=== PATIENT | female | born 1965 | race Caucasian/White ===

== ENCOUNTER 2023-06-24 07:18 | Emergency (ER) | payer OTHER ==
[2023-06-24 07:45] VITALS: PULSE 88; RESP 22; TEMP 96.9; O2SAT 97
[2023-06-24] MEDS ORDERED: Sodium Chloride 0.9% 1000 ML 1,000 ML ONE (07:52)
[2023-06-24] MEDS ORDERED: Zofran 4 MG/2 ML VIAL ONE (07:52)
[2023-06-24] MEDS: Sodium Chloride 0.9% 1000 ML 1,000 ML IV STA (07:54)
[2023-06-24] MEDS: Zofran 4 MG/2 ML VIAL IV ONE (07:55)
[2023-06-24 07:59] LABS: Absolute Neutrophil Ct (ANC) 6.87 x10^3/uL (1.4-6.9); BASOPHIL % 0.5 % (0.0-0.4); Basophil (Absolute #) 0.04 x10^3/uL (0-0.4); Eosinophil % 0.4 % (0.00-5.0); Eosinophil (Absolute #) 0.03 x10^3/uL (0-0.5); Hemoglobin 15.2 g/dL (12.0-16.0); IMMATURE GRAN # 0.04 x10^3u/L (0.00-0.03); IMMATURE GRAN % 0.5 % (0.00-0.4); Lymphocyte (Absolute #) 0.48 x10^3/uL (1.0-4.6); Lymphocytes % 5.9 % (24.0-44.0); Mean Cell Volume 93.8 fL (78-100); Mean Corpuscular Hemoglobin 31.7 pg (26-32); Mean Corpuscular Hgb Concent. 33.8 g/dL (32-36); Monocyte (Absolute #) 0.67 x10^3/uL (0.0-1.3); Monocytes % 8.2 % (0.0-12.0); Neutrophil % 84.5 % (36.0-66.0); Platelet Count 208 x10^3/uL (150-450); Red Cell Distribution Width 12.8 % (11.5-14.0); White Blood Count 8.1 x10^3/uL (4.0-10.5)
[2023-06-24 08:12] LABS: ALBUMIN 5.3 g/dL (3.5-5.0); ANION GAP 19.6 MEQ/L (5-15); BILIRUBIN,TOTAL 0.8 mg/dL (0.2-1.3); Calcium 10.3 mg/dL (8.4-10.2); Creatinine 1 1.78 mg/dL (0.52-1.04); EST GLOMERULAR FILTRATION RATE 32.3 ML/MIN; Potassium 4.5 mmol/L (3.5-5.1); Total Protein 10.1 g/dL (6.3-8.2)
[2023-06-24 08:27] LABS: Slide Review 1 YES
[2023-06-24] MEDS ORDERED: TYLENOL 325 MG ONE (08:43)
[2023-06-24] MEDS: TYLENOL 325 MG PO ONE (08:45)
--- NOTE | 2023-06-24 08:47 | ERPHSYRPT ---
- History of Present Illness Time Seen by Provider: 06/24/23 07:40 Source: patient Exam Limitations: no limitations Patient Subjective Stated Complaint: vomiting and diarrhea since 1530 yesterday afternoon Triage Nursing Assessment: Patient reports to ER with complaints of continous vomiting and diarrhea which started yesterday afternoon around 1530. Patient reports that she cannot keep anything down including the loperimide she has attempted for the diarrhea. Patient has history of colorectal cancer and states she has been in remission for 10 years. Patient reports her last oral intake was around 1200 yesterday and reports that she had consumed some alcold yesterday as well. Patient denies pain but is presenting with facial grimacing, moaning and gaurding her abdomen. Patient reports she is doing this due to intermittent muscle spasms which started this morning but once the spasm goes away she does not have any pain. Vitals within normal limits. Afebrile at this time. Patient denies having a fever over the last 48 hours. Patient is ambulatory and A&O x 3. Physician History: Patient is a 58-year-old female presents to our ED for evaluation of nausea vomiting and cramping. Patient states nausea and vomiting started yesterday around 3:30 PM. Patient has been unable to hold anything down. Patient took loperamide for the diarrhea. Patient's last oral intake was yesterday around noon time. Patient admits that she had alcohol at that time as well. is well. No sick contacts. Patient is experiencing severe intermittent cramping. However patient denied pain and declined pain medication. Patient has a history of colorectal cancer. No associated chest pain or shortness of breath. No trauma no fever. She reports that she has been in remission for approximately 10 years. at bedside. They voiced no other complaints or concerns at this time. Patient voices no other complaints or concerns at this time. Portions of this note were created with voice recognition technology. There may be grammatical, spelling, punctuation or sound alike errors Timing/Duration: yesterday Severity: moderate Modifying Factors: Improves With: nothing Associated Symptoms: other (Muscle cramping) Allergies/Adverse Reactions: codeine Allergy (Verified 06/24/23 07:26) Home Medications: Carbamazepine 200 mg [Tegretol 200 MG] 200 mg PO BID 06/24/23 [History] Famotidine 20 mg [Pepcid 20 MG] 20 mg PO DAILY 06/24/23 [History] Metoprolol Succinate 25 mg Xl* [Toprol-Xl 25MG Tablets] 25 mg PO DAILY 06/24/23 [History] Omeprazole 20 mg PO DAILY 06/24/23 [History] Rosuvastatin Calcium 10 mg PO HS 06/24/23 [History] Immunizations Up to Date: Yes Travel Risk - International Travel Have you traveled outside of the country in past 3 weeks: No - Emerging Infectious Disease Are you exhibiting symptoms associated with any current EIDs: No - Review of Systems Constitutional: No Symptoms, No Fever, No Chills Eyes: No Symptoms Ears, Nose, & Throat: No Symptoms Respiratory: No Symptoms, No Cough, No Dyspnea Cardiac: No Symptoms, No Chest Pain, No Edema, No Syncope Abdominal/Gastrointestinal: No Symptoms, No Abdominal Pain, No Nausea, No Vomiting, No Diarrhea Genitourinary Symptoms: No Symptoms, No Dysuria Musculoskeletal: No Symptoms, No Back Pain, No Neck Pain Skin: No Symptoms, No Rash Neurological: No Symptoms, No Dizziness, No Focal Weakness, No Sensory Changes Psychological: No Symptoms Endocrine: No Symptoms Hematologic/Lymphatic: No Symptoms Immunological/Allergic: No Symptoms All Other Systems: Reviewed and Negative - Past Medical History Pertinent Past Medical History: Yes Neurological History: No Pertinent History ENT History: No Pertinent History Cardiac History: High Cholesterol, Hypertension Respiratory History: No Pertinent History Endocrine Medical History: No Pertinent History Musculoskeletal History: No Pertinent History GI Medical History: Colorectal Cancer, GERD History: No Pertinent History Psycho-Social History: No Pertinent History Female Reproductive Disorders: No Pertinent History Other Medical History: colorectal cancer - in remission x 10 years 06/24/23 - Past Surgical History Past Surgical History: Yes Neuro Surgical History: No Pertinent History Cardiac: No Pertinent History Respiratory: No Pertinent History Gastrointestinal: Colon Resection Genitourinary: No Pertinent History Musculoskeletal: Other Female Surgical History: No Pertinent History Other Surgical History: back surgery - Social History Smoking Status: Never smoker Drug Use: marijuana - Nursing Vital Signs Nursing Vital Signs: Initial Vital Signs Temperature 96.9 F 06/24/23 07:31 Pulse Rate 88 06/24/23 07:31 Respiratory Rate 22 06/24/23 07:31 Blood Pressure 113/83 06/24/23 07:31 O2 Sat by Pulse Oximetry 97 06/24/23 07:31 Pain Scale Pain Intensity 0 - Physical Exam General Appearance: no apparent distress, alert Eye Exam: PERRL/EOMI, eyes nml inspection Ears, Nose, Throat Exam: normal ENT inspection, TMs normal, pharynx normal, moist mucous membranes Neck Exam: normal inspection, non-tender, supple, full range of motion Respiratory Exam: normal breath sounds, lungs clear, airway intact, No respiratory distress Cardiovascular Exam: regular rate/rhythm, normal heart sounds, normal peripheral pulses Gastrointestinal/Abdomen Exam: soft, normal bowel sounds, No tenderness, No mass Back Exam: normal inspection, normal range of motion, No CVA tenderness, No vertebral tenderness Extremity Exam: normal inspection, normal range of motion, pelvis stable Neurologic Exam: alert, oriented x 3, cooperative, normal mood/affect, nml cerebellar function, nml station & gait, sensation nml, No motor deficits Skin Exam: normal color, warm, dry, No rash Lymphatic Exam: No adenopathy SpO2 Interpretation: normal SpO2: 97 O2 Delivery: Room Air - Course Nursing assessment & vital signs reviewed: Yes Ordered Tests: Active Orders 24 hr Category Date Time Status AMA [Release AMA] OM.NOW Care 06/24/23 08:53 Active IV Insertion STAT Care 06/24/23 07:49 Active CBC W DIFF Stat Lab 06/24/23 07:57 Completed CMP Stat Lab 06/24/23 07:57 Completed CULTURE,URINE Stat Lab 06/24/23 08:59 Received LIPASE Stat Lab 06/24/23 07:57 Completed TROPONIN Q4H Lab 06/24/23 07:57 Completed TROPONIN Q4H Lab 06/24/23 12:00 Ordered TROPONIN Q4H Lab 06/24/23 16:00 Ordered UA W/RFX UR CULTURE Stat Lab 06/24/23 08:59 Completed Medication Summary Generic Name Dose Route Start Last Admin Trade Name Freq PRN Reason Stop Dose Admin Ceftriaxone Sodium 1 gm in 100 mls @ 200 mls/hr 06/24/23 09:56 06/24/23 10:02 Rocephin 1 Gm / 100 Ml Nacl IV 06/24/23 10:25 200 mls/hr STAT ONE 200 mls/hr Administration Discontinued Medications Generic Name Dose Route Start Last Admin Trade Name Freq PRN Reason Stop Dose Admin Acetaminophen 975 mg 06/24/23 08:41 06/24/23 08:45 Acetaminophen 325 Mg Tablet PO 06/24/23 08:42 975 mg STAT ONE Administration Acetaminophen Confirm 06/24/23 08:43 Acetaminophen 325 Mg Tablet Administered 06/24/23 08:44 Dose 975 mg .ROUTE .STK-MED ONE Sodium Chloride 1,000 mls @ 999 mls/hr 06/24/23 07:49 06/24/23 09:02 Sodium Chloride 0.9% 1000 Ml IV 06/24/23 08:49 Infused .Q1H1M STA Infusion Sodium Chloride Confirm 06/24/23 07:52 Sodium Chloride 0.9% 1000 Ml Administered 06/24/23 07:53 Dose 1,000 mls @ ud .ROUTE .STK-MED ONE Ceftriaxone Sodium Confirm 06/24/23 10:00 Rocephin 1 Gm / 100 Ml Nacl Administered 06/24/23 10:01 Dose 1 gm in 100 mls @ ud IV .STK-MED ONE Ondansetron HCl 4 mg 06/24/23 07:49 06/24/23 07:55 Ondansetron Hcl 4 Mg/2 Ml Vial IV 06/24/23 07:50 4 mg STAT ONE Administration Ondansetron HCl Confirm 06/24/23 07:52 Ondansetron Hcl 4 Mg/2 Ml Vial Administered 06/24/23 07:53 Dose 4 mg .ROUTE .STK-MED ONE Lab/Rad Data: Laboratory Result Diagrams 06/24/23 07:57 06/24/23 07:57 Laboratory Results 06/24/23 06/24/23 06/24/23 Range/Units 08:59 07:57 07:57 WBC (4.0-10.5) x10^3/uL RBC (4.1-5.4) x10^6/uL Hgb (12.0-16.0) g/dL Hct (35-47) % MCV (78-100) fL MCH (26-32) pg MCHC (32-36) g/dL RDW (11.5-14.0) % Plt Count (150-450) x10^3/uL MPV (7.5-11.0) fL Gran % (36.0-66.0) % Immature Gran % (Auto) (0.00-0.4) % Nucleat RBC Rel Count (0.00-0.1) % Eos # (Auto) (0-0.5) x10^3/uL Immature Gran # (Auto) (0.00-0.03) x10^3u/L Absolute Lymphs (auto) (1.0-4.6) x10^3/uL Absolute Monos (auto) (0.0-1.3) x10^3/uL Absolute Nucleated RBC (0.00-0.01) x10^3u/L Lymphocytes % (24.0-44.0) % Monocytes % (0.0-12.0) % Eosinophils % (0.00-5.0) % Basophils % (0.0-0.4) % Absolute Granulocytes (1.4-6.9) x10^3/uL Basophils # (0-0.4) x10^3/uL Sodium 135 (135-145) mmol/L Potassium 4.5 (3.5-5.1) mmol/L Chloride 96 L (98-107) mmol/L Carbon Dioxide 25 (22-30) mmol/L Anion Gap 19.6 H (5-15) MEQ/L BUN 23 H (7-17) mg/dL Creatinine 1.78 H (0.52-1.04) mg/dL Estimated GFR 32.3 ML/MIN Glucose 155 H (74-106) mg/dL Calcium 10.3 H (8.4-10.2) mg/dL Total Bilirubin 0.80 (0.2-1.3) mg/dL AST 34 (14-36) U/L ALT 35 (0-35) U/L Alkaline Phosphatase 106 (38-126) U/L Troponin I < 0.012 (0.000-0.033) ng/mL Serum Total Protein 10.1 H (6.3-8.2) g/dL Albumin 5.3 H (3.5-5.0) g/dL Lipase 80 (23-300) U/L Urine Color Dark Yellow A (Yellow) Urine Appearance Turbid A (Clear) Urine pH 5.0 (4.6-8.0) Ur Specific Temple >=1.030 A (1.005-1.030) Urine Protein 100 A (Negative) Urine Glucose (UA) 100 A (Negative) mg/dL Urine Ketones Trace A (Negative) Urine Blood Small A (Negative) Urine Nitrite Positive A (Negative) Urine Bilirubin Moderate A (Negative) Urine Urobilinogen 0.2 (0.2) mg/dL Ur Leukocyte Esterase Moderate A (Negative) U Hyaline Cast (Auto) >50 A (0-2) /LPF Urine Microscopic RBC 11-20 A (0-5) /HPF Urine Microscopic WBC 11-20 A (0-5) /HPF Ur Epithelial Cells Few (None Seen) /HPF Urine Bacteria Moderate A (None Seen) /HPF Urine Culture Reflexed YES (NO) Slides for Path Review 06/24/23 Range/Units 07:57 WBC 8.1 (4.0-10.5) x10^3/uL RBC 4.80 (4.1-5.4) x10^6/uL Hgb 15.2 (12.0-16.0) g/dL Hct 45.0 (35-47) % MCV 93.8 (78-100) fL MCH 31.7 (26-32) pg MCHC 33.8 (32-36) g/dL RDW 12.8 (11.5-14.0) % Plt Count 208 (150-450) x10^3/uL MPV 10.0 (7.5-11.0) fL Gran % 84.5 H (36.0-66.0) % Immature Gran % (Auto) 0.5 H (0.00-0.4) % Nucleat RBC Rel Count 0.0 (0.00-0.1) % Eos # (Auto) 0.03 (0-0.5) x10^3/uL Immature Gran # (Auto) 0.04 H (0.00-0.03) x10^3u/L Absolute Lymphs (auto) 0.48 L (1.0-4.6) x10^3/uL Absolute Monos (auto) 0.67 (0.0-1.3) x10^3/uL Absolute Nucleated RBC 0.00 (0.00-0.01) x10^3u/L Lymphocytes % 5.9 L (24.0-44.0) % Monocytes % 8.2 (0.0-12.0) % Eosinophils % 0.4 (0.00-5.0) % Basophils % 0.5 (0.0-0.4) % Absolute Granulocytes 6.87 (1.4-6.9) x10^3/uL Basophils # 0.04 (0-0.4) x10^3/uL Sodium (135-145) mmol/L Potassium (3.5-5.1) mmol/L Chloride (98-107) mmol/L Carbon Dioxide (22-30) mmol/L Anion Gap (5-15) MEQ/L BUN (7-17) mg/dL Creatinine (0.52-1.04) mg/dL Estimated GFR ML/MIN Glucose (74-106) mg/dL Calcium (8.4-10.2) mg/dL Total Bilirubin (0.2-1.3) mg/dL AST (14-36) U/L ALT (0-35) U/L Alkaline Phosphatase (38-126) U/L Troponin I (0.000-0.033) ng/mL Serum Total Protein (6.3-8.2) g/dL Albumin (3.5-5.0) g/dL Lipase (23-300) U/L Urine Color (Yellow) Urine Appearance (Clear) Urine pH (4.6-8.0) Ur Specific Temple (1.005-1.030) Urine Protein (Negative) Urine Glucose (UA) (Negative) mg/dL Urine Ketones (Negative) Urine Blood (Negative) Urine Nitrite (Negative) Urine Bilirubin (Negative) Urine Urobilinogen (0.2) mg/dL Ur Leukocyte Esterase (Negative) U Hyaline Cast (Auto) (0-2) /LPF Urine Microscopic RBC (0-5) /HPF Urine Microscopic WBC (0-5) /HPF Ur Epithelial Cells (None Seen) /HPF Urine Bacteria (None Seen) /HPF Urine Culture Reflexed (NO) Slides for Path Review YES - Progress Progress: improved Progress Note: 4-year-old female presents to our ED for evaluation of a 1 day history of nausea and vomiting and diarrhea physical exam reveals intermittent painful cramping. Patient declined pain medication. Laboratory workup reveals ADELE with creatinine 1.78. IV fluids initiated. Zofran initiated. Patient reexamined. Patient states her cramping improved she was able to rest however complained of a headache. Patient received oral dose of Tylenol. We advised that patient would likely have to stay in the hospital for further hydration and monitoring of her kidney function. Patient declined stating she was 100 miles away and had other obligations. Patient states she was signed out AMA instead. Patient is of sound mind. Patient is appropriate to make informed and independent medical decisions. Patient understands that leaving AGAINST MEDICAL ADVICE can result in delayed diagnosis, increased risk of morbidity, mortality, short and long-term disability including . In spite of these risks, patient has decided to leave AGAINST MEDICAL ADVICE. Patient understands that she may return to our ED at any point if she reconsiders. Patient agrees to fo llow-up with her primary care doctor within 48 hours for reevaluation. Patient voices no other complaints or concerns at this time. We will release patient AGAINST MEDICAL ADVICE per their request. Portions of this note were created with voice recognition technology. There may be grammatical, spelling, punctuation or sound alike errors Complexity problem addressed is moderate acute complicated No critical care time Complex of data reviewed and analyzed is moderate. Test ordered test reviewed results analyzed and correlated clinically with history and physical examination. Risk of complication and or risk of morbidity/mortality of patient management is moderate. A prescription for Keflex forwarded to patient's pharmacy Patient discharged AMA. Vital stable. Time spent to discharge patient is approximately 20 minutes. Patient leaving AMA. She declined admission. Patient states she will follow-up with her provider when she gets into her hometown. Portions of this note were created with voice recognition technology. There may be grammatical, spelling, punctuation or sound alike errors 06/24/23 08:54 06/24/23 10:09 Counseled pt/family regarding: lab results, diagnosis, need for follow-up - Departure Departure Disposition: AMA Clinical Impression: Nausea & vomiting, Diarrhea, ADELE (acute kidney injury), Dehydration, Muscle cramps, UTI (urinary tract infection) Condition: Stable Critical Care Time: No Referrals: DOCTOR,NO FAMILY [Primary Care Provider] - Follow up/PCP as directed YARIEL RODRIGUEZ DO [ACTIVE STAFF] - Follow up/PCP as directed Additional Instructions: Discharge/Care Plan ALEX KNOTT was seen on 06/24/23 in the Emergency Room. The patient was counseled regarding Diagnosis,Lab results, Imaging studies, need for follow up and when to return to the Emergency Room. Prescriptions given: Discharge Note I have spoken with the patient and/or caregivers. I have explained the patient's condition, diagnosis and treatment plan based on the information available to me at this time. I have answered the patient's and/or caregiver's questions and addressed any concerns. The patient and/or caregivers have as good understanding of the patient's diagnosis, condition and treatment plan as can be expected at this point. The vital signs have been stable. The patient's condition is stable and appropriate for discharge from the emergency department. The patient will pursue further outpatient evaluation with the primary care physician or other designated or consulting physician as outlined in the discharge instructions. The patient and/or caregivers are agreeable to this plan of care and follow-up instructions have been explained in detail. The patient and/or caregivers have received these instruction. The patient/and or caregivers are aware that any significant change in condition or worsening of symptoms should prompt an immediate return to this or the closest emergency department or call 911. Prescriptions: Cephalexin Mh 500 mg [Keflex 500 mg] 500 mg PO BID 7 Days #14 cap
[2023-06-24 09:12] LABS: Appearance Turbid (Clear); Bacteria Moderate /HPF (None Seen); Bilirubin Moderate (Negative); Blood Small (Negative); Epithelial Cells Few /HPF (None Seen); Glucose, Urine 100 mg/dL (Negative); Hyaline Casts >50 /LPF (0-2); Ketones Trace (Negative); Leukocyte Esterase Moderate (Negative); Nitrite Positive (Negative); Protein,Urine Dip 100 (Negative); Specific Gravity >=1.030 (1.005-1.030); Urobilinogen 0.2 mg/dL (0.2)
[2023-06-24 09:14] LABS: ADD URINE CULTURE? YES (NO)
[2023-06-24] MEDS ORDERED: ROCEPHIN 1 GM / 100 ML NaCl 1 GM/100 ML IVPB IV ONE (10:00)
[2023-06-24] MEDS: ROCEPHIN 1 GM / 100 ML NaCl 1 GM/100 ML IVPB IV ONE (10:02)
[2023-06-24 10:13] LABS: 027 TOX PROD PRESUMPTIVE NEGATIVE (NEGATIVE)
[2023-06-24 10:15] LABS: TOXIGENIC C. DIFF ORG POSITIVE (NEGATIVE)
[2023-06-24 11:51] VITALS: BP 152/92
[2023-06-26 06:09] LABS: Adenovirus F40/41 Not Detected (Not Detected); Astrovirus Not Detected (Not Detected); Campylobacter Not Detected (Not Detected); Cryptosporidium Not Detected (Not Detected); Cyclospora cayetanensis Not Detected (Not Detected); Entamoeba histolytica Not Detected (Not Detected); Enteroaggregative E coli Not Detected (Not Detected); Enterpathogenic E coli Not Detected (Not Detected); Entertoxigenic E coli Not Detected (Not Detected); Giardia lamblia Not Detected (Not Detected); Norovirus GI/GII Not Detected (Not Detected); Plesiomonas shigelloides Not Detected (Not Detected); Rotavirus A Detected (Not Detected); Salmonella Not Detected (Not Detected); Shig-toxin-producing E coli Not Detected (Not Detected); Shigella/Enterinvasive E coli Not Detected (Not Detected); Vibrio Not Detected (Not Detected); Vibrio cholerae Not Detected (Not Detected); Yersinia enterocolitica Not Detected (Not Detected)
[2023-06-26 06:31] LABS: Sapovirus Not Detected (Not Detected)
== END 2023-06-24 11:50 | disposition left against medical advice (07) ==
LOC: ED 07:18
DX: N39.0 Urinary tract infection, site not specified (principal); N17.9 Acute kidney failure, unspecified; R11.2 Nausea with vomiting, unspecified; R19.7 Diarrhea, unspecified; E86.0 Dehydration; R25.2 Cramp and spasm; A04.72 Enterocolitis due to Clostridium difficile, not specified as recurrent; E78.5 Hyperlipidemia, unspecified; I10 Essential (primary) hypertension; Z79.899 Other long term (current) drug therapy
CPT/HCPCS: 36000; 36415; 80053; 81001; 83690; 84484; 85025; 87077; 87086; 87186; 87493; 87507; 87529; 96360; 96365; 96374; 99284; J0696; J2405; A9270-GY